=== PATIENT | male | born 1930 | race Caucasian/White ===

== ENCOUNTER 2017-11-09 20:05 | Emergency (ER) | payer OTHER ==
[~2017-11-09] VITALS: Ht 167.6 cm; Wt 77.1 kg
[2017-11-09] MEDS ORDERED: CARDIZEM LA300 MG (20:19)
== END 2017-11-09 22:56 | disposition home or self-care (01) ==
LOC: ER 20:05 → EDBD 20:05 → ER 20:12
DX: F10.129 Alcohol abuse with intoxication, unspecified (principal)